=== PATIENT | male | born 1995 | race African-American/Black ===

== ENCOUNTER 2017-04-03 21:28 | Emergency (ER) | payer OTHER ==
[~2017-04-03] VITALS: Ht 175.3 cm; Wt 81.6 kg
[2017-04-03] MEDS ORDERED: NS IV 1000 ML 1,000 ML IV ONE (22:18)
--- NOTE | 2017-04-03 22:24 | ED GI ---
General Chief Complaint: Abdominal/GI Problems Stated Complaint: POSS FOOD POISONING Nursing Triage Note: PT TO ED 9 W/ C/O N/V/D ONSET AFTER EATING CHICKEN THIS AM. PT REPORTS HIS ROOMMATE COOKED CHICKEN ET BECAME SICK AFTER EATING IT. NO OTHER C/O VOICED Source of Information: Patient Exam Limitations: No Limitations History of Present Illness Time Seen By Provider: 22:16 Initial Comments Patient reports ER by private conveyance because earlier today about 10:00 this morning he was eating some chicken at a friend's house that he did not think his friend did a good job cooking all the way through and pre-shortly after that started experiencing diarrhea and nausea and vomiting. He's not had any alcohol today. He does not smoke but he only occasionally drinks. He denies illicit drug use. He says that he has had no prior medical history or surgical history of his abdomen. He is not taking any medications. He has seen no blood in his vomiting or diarrhea. He denies dysuria or discharge, shortness of breath or chest pain. Allergies and Home Medications Allergies Coded Allergies: No Known Drug Allergies (Unverified , 04/03/17) Review of Systems Constitutional: No chills, No fever, malaise EENTM: No Blurred Vision, No Double Vision, Nose Congestion Respiratory: Cough (occ), Denies Shortness of Air Cardiovascular: Denies Chest Pain, Denies Lightheadedness, Denies Syncope Gastrointestinal: Denies Abdomen Distended, Denies Abdominal Pain, Denies Constipated, Diarrhea, Nausea, Poor Fluid Intake, Denies Rectal Bleeding, Vomiting Genitourinary: Denies Burning, Denies Discharge Musculoskeletal: No back pain, No joint pain Skin: No pruritus, No rash Psychiatric/Neurological: Denies Headache, Denies Numbness, Denies Paresthesia Past [id number] Hx Patient Social History Alcohol Use: Denies Use Recreational Drug Use: No Smoking Status: Never a Smoker Recent Foreign Travel: No Contact w/Someone Who Travel: No Recent Infectious Disease Expo: No Recent Hopitalizations: No Ebola Symptoms: Denies Symptoms Listed Physical Abuse: No Sexual Abuse: No Mistreated: No Fear: No Surgeries History of Surgeries: Yes Surgeries: Orthopedic Respiratory History of Respiratory Disorde: No Cardiovascular History of Cardiac Disorders: No Neurological History of Neurological Disord: No Genitourinary History of Genitourinary Disor: No Gastrointestinal History of Gastrointestinal Di: No Musculoskeletal History of Musculoskeletal Dis: No Endocrine History of Endocrine Disorders: No HEENT History of HEENT Disorders: No Cancer History of Cancer: No Psychosocial History of Psychiatric Problem: No Suicide Risk Score: 0 Integumentary History of Skin or Integumenta: No Blood Transfusions History of Blood Disorders: No Physical Exam Vital Signs VS - Last 72 Hours, by Label 04/03/17 21:52 Temp 98.5 Pulse 88 Resp 20 B/P (MAP) 152/94 O2 Delivery Room Air Capillary Refill : General Appearance: WD/WN, no apparent distress HEENT: PERRL/EOMI, pharynx normal Neck: non-tender, normal inspection Respiratory: chest non-tender, lungs clear, normal breath sounds Cardiovascular: normal peripheral pulses, regular rate, rhythm Peripheral Pulses: 2+ Radial Pulses (R), 2+ Radial Pulses (L) Gastrointestinal: normal bowel sounds, non tender, soft, no organomegaly Neurologic/Psychiatric: alert, oriented x 3 Skin: normal color, warm/dry Progress/Results/Core Measures Results/Orders Lab Results Laboratory Tests Test 04/03/17 21:56 Range/Units White Blood Count 7.0 4.3-11.0 10^3/uL Red Blood Count 6.11 H 4.35-5.85 10^6/uL Hemoglobin 18.1 H 13.3-17.7 G/DL Hematocrit 52 40-54 % Mean Corpuscular Volume 84 80-99 FL Mean Corpuscular Hemoglobin 30 25-34 PG Mean Corpuscular Hemoglobin Concent 35 32-36 G/DL Red Cell Distribution Width 12.4 10.0-14.5 % Platelet Count 219 130-400 10^3/uL Mean Platelet Volume 11.0 H 7.4-10.4 FL Neutrophils (%) (Auto) 80 H 42-75 % Lymphocytes (%) (Auto) 10 L 12-44 % Monocytes (%) (Auto) 4 0-12 % Eosinophils (%) (Auto) 6 0-10 % Basophils (%) (Auto) 0 0-10 % Neutrophils # (Auto) 5.6 1.8-7.8 X 10^3 Lymphocytes # (Auto) 0.7 L 1.0-4.0 X 10^3 Monocytes # (Auto) 0.3 0.0-1.0 X 10^3 Eosinophils # (Auto) 0.4 H 0.0-0.3 10^3/uL Basophils # (Auto) 0.0 0.0-0.1 10^3/uL Sodium Level 141 135-145 MMOL/L Potassium Level 4.5 3.6-5.0 MMOL/L Chloride Level 103 98-107 MMOL/L Carbon Dioxide Level 23 21-32 MMOL/L Anion Gap 15 H 5-14 MMOL/L Blood Urea Nitrogen 17 7-18 MG/DL Creatinine 1.33 H 0.60-1.30 MG/DL Estimat Glomerular Filtration Rate > 60 BUN/Creatinine Ratio 13 Glucose Level 96 70-105 MG/DL Calcium Level 9.8 8.5-10.1 MG/DL Magnesium Level 2.2 1.8-2.4 MG/DL Total Bilirubin 1.4 H 0.1-1.0 MG/DL Aspartate Amino Transf (AST/SGOT) 42 H 5-34 U/L Alanine Aminotransferase (ALT/SGPT) 34 0-55 U/L Alkaline Phosphatase 91 40-136 U/L Total Protein 8.5 H 6.4-8.2 GM/DL Albumin 4.7 H 3.2-4.5 GM/DL My Orders Orders - ERLIN PEREZ Cbc With Automated Diff (04/03/17 22:18) Comprehensive Metabolic Panel (04/03/17 22:18) Magnesium (04/03/17 22:18) Saline Lock/Iv-Start (04/03/17 22:18) Ns Iv 1000 Ml (Sodium Chloride 0.9%) (04/03/17 22:18) Medications Given in ED Current Medications Medications Dose Ordered Sig/Jennifer Route Start Time Stop Time Status Last Admin Dose Admin Sodium Chloride 1,000 ml @ 0 mls/hr Q0M ONCE IV 04/03/17 22:18 04/03/17 22:20 DC 04/03/17 22:25 1,000 MLS/HR Vital Signs/I&O Vital Sign - Last 12Hours 04/03/17 21:52 Temp 98.5 Pulse 88 Resp 20 B/P (MAP) 152/94 O2 Delivery Room Air Departure Impression Impression: Primary Impression: Gastroenteritis and colitis, toxic Disposition: 01 HOME, SELF-CARE Condition: Stable Departure-Patient Inst. Decision time for Depature: 22:47 Referrals: [facility] (PCP/Family) Primary Care Physician Patient Instructions: Food Poisoning (DC) Add. Discharge Instructions: It is paramount that you keep as much fluids going in his you are losing out through your vomiting and diarrhea. You may use water or half strength Gatorade or any other fluid you choose. Go easy on caffeine and avoid alcohol for the time being. Typically toxins will improve in the first day and viruses will improve in 3-5 days. If you're not seeing improvement by then you should follow up with your primary care physician for further evaluation and management. As long as you're able to keep fluid going in passive than you're losing them he will not feel poorly and do well. If you're having body aches or headaches you can use Tylenol 1000 mg every 8 hours as needed or Motrin 800 mg every 8 hours as needed. You should return to the ER if you develop fevers, lethargy, intractable nausea vomiting that does not respond to the Zofran tablet under the tongue every 6 hours as needed. All discharge instructions reviewed with patient and/or family. Voiced understanding. Scripts Ondansetron (Ondansetron Odt) 4 Mg Tab.rapdis 4 MG PO Q6H Y for NAUSEA/VOMITING, #8 TAB 0 Refills Prov: ERLIN PEREZ 04/03/17 Work/School Note: School/Childcare Release Date Seen in the Emergency Department: Apr 03, 2017 Time Dismissed from Emergency Department: 22:49 Return to School: Apr 04, 2017 Restrictions: No Restrictions Other Restrictions Listed Below: No weight lifting for 24 hours. ERLIN PEREZ Apr 03, 2017 22:24
[2017-04-03 22:27] LABS: BASOPHILS % (AUTO) 0 % (0-10); EOSINOPHILS # (AUTO) 0.4 10^3/uL (0.0-0.3); EOSINOPHILS % (AUTO) 6 % (0-10); LYMPHOCYTES # (AUTO) 0.7 X 10^3 (1.0-4.0); LYMPHOCYTES % (AUTO) 10 % (12-44); MEAN CORPUSCULAR HEMOGLOBIN 30 PG (25-34); MEAN CORPUSCULAR HGB CONC 35 G/DL (32-36); MEAN CORPUSCULAR VOLUME 84 FL (80-99); MONOCYTES # (AUTO) 0.3 X 10^3 (0.0-1.0); MONOCYTES % (AUTO) 4 % (0-12); NEUTROPHILS # (AUTO) 5.6 X 10^3 (1.8-7.8); NEUTROPHILS % (AUTO) 80 % (42-75); PLATELET COUNT 219 10^3/uL (130-400); RED BLOOD COUNT 6.11 10^6/uL (4.35-5.85); RED CELL DISTRIBUTION WIDTH 12.4 % (10.0-14.5)
[2017-04-03 22:35] LABS: ALANINE AMINOTRANSFERASE 34 U/L (0-55); ALBUMIN 4.7 GM/DL (3.2-4.5); ANION GAP 15 MMOL/L (5-14); ASPARTATE AMINO TRANSFERASE 42 U/L (5-34); BILIRUBIN,TOTAL 1.4 MG/DL (0.1-1.0); BLOOD UREA NITROGEN 17 MG/DL (7-18); BUN/CREATININE RATIO 13; CALCIUM 9.8 MG/DL (8.5-10.1); CARBON DIOXIDE 23 MMOL/L (21-32); CHLORIDE 103 MMOL/L (98-107); CREATININE SERUM 1.33 MG/DL (0.60-1.30); GFR ESTIMATED > 60; GLUCOSE 96 MG/DL (70-105); MAGNESIUM 2.2 MG/DL (1.8-2.4); POTASSIUM 4.5 MMOL/L (3.6-5.0); SODIUM 141 MMOL/L (135-145); TOTAL PROTEIN 8.5 GM/DL (6.4-8.2)
[2017-04-03] MEDS ORDERED: ONDA4TAB11 PO (22:48)
[2017-04-03] MEDS ORDERED: RX-ONDANSETRON 4 MG ODT (ZOFRAN) PPK #4 ONE (23:01)
[2017-04-03] MEDS ORDERED: RX-ONDANSETRON 4 MG ODT (ZOFRAN) PPK #4 PO STA (23:29)
== END 2017-04-03 23:01 | disposition home or self-care (01) ==
LOC: ER 21:31
DX: T62.94XA Toxic effect of unspecified noxious substance eaten as food, undetermined, initial encounter (principal)
CPT/HCPCS: 36415; 80053; 83735; 85025